=== PATIENT | female | born 1980 | race Asian ===

== ENCOUNTER 2016-11-02 19:41 | Inpatient (IN) | payer MEDICAID, OTHER ==
[~2016-11-02] VITALS: Ht 172.7 cm; Wt 151.5 kg
[2016-11-02] MEDS ORDERED: ONDANSETRON 2MG/ML, 2ML IVPush ONE (20:00)
[2016-11-02] MEDS ORDERED: KETOROLAC 30 MG/1 ML IVPush ONE (20:00)
[2016-11-02] MEDS ORDERED: HYDROmorphone 1 MG/ML, 1ML IVPush PRN ×2 (20:00→23:00)
[2016-11-02] MEDS ORDERED: SODIUM CHLORIDE 0.9% 1,000ML IVBOLUS ONE (20:00)
[2016-11-02] MEDS ORDERED: KETOROLAC 30 MG/1 ML ONE (20:16)
[2016-11-02] MEDS ORDERED: ONDANSETRON 2MG/ML, 2ML ONE (20:16)
[2016-11-02 20:27] LABS: HEMATOCRIT 35.2 % (34.6-47.8); WHITE BLOOD COUNT 23.3 x10^3/uL (3.4-10)
[2016-11-02 20:39] LABS: ASPARTATE AMINO TRANSFERASE 32 U/L (15-37); BLOOD UREA NITROGEN 5 mg/dL (7-18)
[2016-11-02] MEDS ORDERED: HYDROmorphone 1 MG/ML, 1ML ONE (21:42)
[2016-11-02] MEDS ORDERED: CEFTRIAXONE PMX 1GM/50ML 50 ML ONE (21:42)
[2016-11-02] MEDS ORDERED: CEFTRIAXONE PMX 1GM/50ML 50 ML IV ONE (22:00)
[2016-11-02] MEDS ORDERED: SODIUM CHLORIDE 0.9% 1,000 ML IV ONE (22:43)
[2016-11-02] MEDS ORDERED: ONDANSETRON 2MG/ML, 2ML IVPush PRN (23:00)
[2016-11-02] MEDS: DOXYCYCLINE 100 MG in DEXTROSE 5% 250 ML IV SCH (23:58)
[2016-11-02] MEDS: CEFOTETAN PMX 2GM/50ML 50 ML IV SCH (23:58)
[2016-11-03 00:12] VITALS: BP 94/57
[2016-11-03] MEDS: METRONIDAZOLE PMX 500MG/100ML 100 ML IV SCH ×2 (01:06→09:40)
[2016-11-03 03:30] VITALS: BP 116/78
[2016-11-03 07:35] VITALS: BP 148/95
[2016-11-03] MEDS: DOXYCYCLINE 100 MG in DEXTROSE 5% 250 ML IV SCH (11:40)
[2016-11-03] MEDS ORDERED: [UNRECOGNIZED DRUG - OTHER] MC PRN (12:30)
[2016-11-03] MEDS: CEFOTETAN PMX 2GM/50ML 50 ML IV SCH (13:14)
[2016-11-03] MEDS ORDERED: OXYcodone/APAP 5/325MG TABLET PO PRN (13:30)
[2016-11-03] MEDS ORDERED: ZOLPIDEM 5MG TABLET PO PRN (13:30)
[2016-11-03] MEDS ORDERED: ACETAMINOPHEN 325 MG TABLET PO PRN (13:30)
[2016-11-03 13:37] VITALS: BP_SYST 150; BP_DIAS 80; BP_DIAS 96
[2016-11-03] MEDS ORDERED: POTASSIUM CHLORIDE 40 MEQ in SODIUM CHLORIDE 0.9% 500 ML IV ONE ×2 (15:00→20:30)
[2016-11-03 15:10] LABS: BLOOD UREA NITROGEN 7 mg/dL (7-18)
[2016-11-03] MEDS: CLINDAMYCIN PMX 900MG/50ML 50 ML IV SCH ×2 (15:49→23:33)
[2016-11-03] MEDS: CEFOTETAN PMX 2GM/50ML 50 ML IVPB SCH (17:42)
[2016-11-03 19:07] VITALS: BP 112/77
[2016-11-03] MEDS: DOXYCYCLINE 100MG TABLET PO SCH (20:09)
[2016-11-03] MEDS: SODIUM CHLORIDE 0.9% 1,000 ML IV SCH (22:40)
[2016-11-04 00:23] VITALS: BP 124/75
[2016-11-04] MEDS: IBUPROFEN 800 MG TABLET PO PRN ×2 (01:18→20:49)
[2016-11-04] MEDS: CEFOTETAN PMX 2GM/50ML 50 ML IVPB SCH ×2 (04:42→18:14)
[2016-11-04 05:14] LABS: HEMATOCRIT 33.3 % (34.6-47.8); HEMOGLOBIN 10.1 g/dL (11.7-16.4); WHITE BLOOD COUNT 13.4 x10^3/uL (3.4-10)
[2016-11-04 05:19] LABS: BLOOD UREA NITROGEN 9 mg/dL (7-18)
[2016-11-04 05:27] LABS: FERRITIN 71.4 ng/mL (8-252); TOTAL IRON BINDING CAPACITY 259 mcg/dL (250-450); TRANSFERRIN 194 mg/dL (200-360)
[2016-11-04 06:17] LABS: DIFF TOTAL CELLS COUNTED 100 CELL DIFF
[2016-11-04 06:18] LABS: ANISOCYTOSIS 1+; HYPOCHROMIA 1+; MICROCYTOSIS 1+; POLYCHROMASIA 1+; VERIFY COUNTS? YES
[2016-11-04 06:19] LABS: LARGE PLATELETS 1+
[2016-11-04 06:48] VITALS: BP 129/78
[2016-11-04] MEDS: CLINDAMYCIN PMX 900MG/50ML 50 ML IV SCH ×3 (07:33→23:38)
[2016-11-04] MEDS: DOXYCYCLINE 100MG TABLET PO SCH ×2 (07:33→20:49)
[2016-11-04 14:16] VITALS: BP 136/86
[2016-11-04] MEDS: SODIUM CHLORIDE 0.9% 1,000 ML IV SCH (14:34)
[2016-11-04 18:40] VITALS: BP 122/77
[2016-11-05 02:36] LABS: CARE PROVIDER REQUESTING TEST N
[2016-11-05 02:50] VITALS: BP 146/89
[2016-11-05] MEDS: CEFOTETAN PMX 2GM/50ML 50 ML IVPB SCH (05:07)
[2016-11-05 06:01] LABS: HEMATOCRIT 31.1 % (34.6-47.8); HEMOGLOBIN 9.8 g/dL (11.7-16.4); WHITE BLOOD COUNT 11.4 x10^3/uL (3.4-10)
[2016-11-05 06:15] LABS: BLOOD UREA NITROGEN 10 mg/dL (7-18)
[2016-11-05] MEDS: CLINDAMYCIN PMX 900MG/50ML 50 ML IV SCH (07:42)
[2016-11-05] MEDS: DOXYCYCLINE 100MG TABLET PO SCH (07:44)
[2016-11-05 08:43] VITALS: BP 128/87
[2016-11-05] MEDS ORDERED: MEDROXYPROGESTERONE ACETATE 150 MG/ML IM ONE (09:30)
[2016-11-05] MEDS ORDERED: FERR325T16 PO (09:36)
[2016-11-05] MEDS ORDERED: DOXY100T9 PO (09:37)
[2016-11-05] MEDS ORDERED: IBUP-1223 PO (09:38)
[2016-11-05] MEDS ORDERED: OXYC-302 PO (09:39)
[2016-11-05] MEDS ORDERED: NITR100C56 PO (09:40)
[2016-11-05] MEDS ORDERED: CLIN300C8 PO (09:40)
[2016-11-05 11:13] LABS: HIV 1&2 ANTIBODY SCREEN Nonreactive (Nonreactive); HIV-1 p24 ANTIGEN Nonreactive (Nonreactive)
[2016-11-05 11:26] VITALS: BP 140/92
== END 2016-11-05 11:45 | disposition home or self-care (01) | DRG 871 ==
LOC: ED 21:27 → EDIP 22:43 → 4NOR 23:48
PROVIDERS: ADMIT Obstetrics & Gynecology; ATTEND Obstetrics & Gynecology
DX: A41.9 Sepsis, unspecified organism (principal); E43 Unspecified severe protein-calorie malnutrition; N73.0 Acute parametritis and pelvic cellulitis; E87.1 Hypo-osmolality and hyponatremia; D50.9 Iron deficiency anemia, unspecified; F17.200 Nicotine dependence, unspecified, uncomplicated; Z68.43 Body mass index [BMI] 50.0-59.9, adult; E87.6 Hypokalemia; E66.01 Morbid (severe) obesity due to excess calories; N70.93 Salpingitis and oophoritis, unspecified; R65.20 Severe sepsis without septic shock
CPT/HCPCS: 36415; 74176; 76830; 80048; 80053; 81001; 82728; 83540; 83550; 83605; 83735; 84466; 84703; 85025; 86592; 86703; 86780; 86803; 87040; 87086; 87324; 87350; 87491; 87591; 87899; 96374; 96375; J0696; J1170; J1885; J2405; J3480; J7060; G0435; J1050; J7030; J7040; S0074